=== PATIENT | female | born 1945 | race Caucasian/White ===

== ENCOUNTER 2016-12-06 10:05 | Outpatient (CLI) | payer OTHER, MEDICARE ==
--- NOTE | 2016-12-06 12:04 | DIAGNOSTIC IMAGING REPORT ---
PROCEDURE: MG BILATERAL SCREENING W/CAD INDICATION: Screening. Family history breast carcinoma (grandmother). TECHNIQUE: Bilateral CC and MLO digital views. COMPARISON: Compared to 10/13/2014, 09/04/2011, and 08/09/2009. FINDINGS: Computer-aided detection applied. Moderately dense with a few dystrophic calcifications. There is a 1.4 cm asymmetric density in the lateral left breast (seen only on the CC view - - most likely in the upper outer left breast). IMPRESSION: 1. There is a 1.4 cm asymmetric density in the lateral left breast. While this may represent normal asymmetric parenchyma, underlying mass should also be considered. Further mammographic views (true lateral view, CC and MLO spot compression views) are recommended. In addition, left breast ultrasound is recommended. RESULT CODE: 0- Incomplete; needs additional evaluation. A. A negative report should not delay biopsy if a dominant or clinically suspicious mass is present. 10-15% of cancers are not identified by x-ray. B. A negative report may reinforce clinical impression. C. Adenosis and dense breasts may obscure an underlying neoplasm. D. False positive reports average 6-10%. E.. A yearly screening mammogram is recommended. A reminder letter will be scheduled.
[2017-01-25] MEDS ORDERED: MULTIVITAMIN1 TAB PO (16:51)
[2017-01-25] MEDS ORDERED: ALEVE220 MG PO (16:51)
[2017-01-25] MEDS ORDERED: MELATONIN5 MG PO (16:51)
[2017-01-25] MEDS ORDERED: VITAMIN D-31000 UNIT PO (16:56)
== END 2016-12-06 23:00 ==
LOC: MAM SRH 10:05
DX: Z12.31 Encounter for screening mammogram for malignant neoplasm of breast (principal)

== ENCOUNTER 2016-12-13 14:26 | Outpatient (CLI) | payer OTHER, MEDICARE ==
--- NOTE | 2016-12-20 00:31 | DIAGNOSTIC IMAGING REPORT ---
PROCEDURE: MG UNILATERAL DIAG-LT W/CAD INDICATION: Follow-up left breast asymmetric parenchyma versus nodule. TECHNIQUE: True lateral digital view of the left breast. In addition, spot compression CC and MLO views were obtained of the lateral breast (region of clinical concern), followed by rolled medial and lateral CC, and rolled cranial and caudal lateral views of the left breast. Finally, high-resolution left breast ultrasound was performed (18 mHz). COMPARISON: Comparison is made to screening mammogram studies on 12/06/2016, 10/13/2014, and 07/05/2012. FINDINGS: MAMMOGRAM: Computer-aided detection applied. There is a vague 1.5 cm area of increased parenchymal density in the lateral left breast with obscured margins (middle third). BREAST ULTRASOUND: There are [id number] areas of small clustered cysts in the lateral left breast (largest 6 mm). Findings discussed with Dr. Katerina Monk and Dr. Villagran. IMPRESSION: 1. There is a vague 1.5 cm area of increased density in the lateral left which may correspond to a small of clustered group of cysts. While the overall appearance suggests this may represent benign apocrine metaplasia, underlying malignancy should still be considered. Mammographic needle localization with excisional biopsy recommended in this instance (mammographic density may or may correlate with ultrasound findings). 2. Findings discussed with the patient. 3. Findings called to Dr. Clemons. RESULT CODE: 4- Suspicious abnormality - biopsy should be considered. A. A negative report should not delay biopsy if a dominant or clinically suspicious mass is present. 10-15% of cancers are not identified by x-ray. B. A negative report may reinforce clinical impression. C. Adenosis and dense breasts may obscure an underlying neoplasm. D. False positive reports average 6-10%. E.. A yearly screening mammogram is recommended. A reminder letter will be scheduled.
[2017-01-25] MEDS ORDERED: MULTIVITAMIN1 TAB PO (16:51)
[2017-01-25] MEDS ORDERED: ALEVE220 MG PO (16:51)
[2017-01-25] MEDS ORDERED: MELATONIN5 MG PO (16:51)
[2017-01-25] MEDS ORDERED: VITAMIN D-31000 UNIT PO (16:56)
== END 2016-12-13 23:00 ==
LOC: MAM SRH 14:26
DX: R92.8 Other abnormal and inconclusive findings on diagnostic imaging of breast (principal)

== ENCOUNTER 2017-01-29 09:41 | Day surgery (SDC) | payer OTHER, MEDICARE ==
[~2017-01-29] VITALS: Ht 162.6 cm; Wt 80.2 kg
[~2017-01-29 09:41] MED LIST: ALEVE220 MG PO; MELATONIN5 MG PO; MULTIVITAMIN1 TAB PO; VITAMIN D-31000 UNIT PO
--- NOTE | 2017-01-29 13:57 | DIAGNOSTIC IMAGING REPORT ---
PROCEDURE: MG PREOP BREAST WIRE LOC-LT INDICATION: Preop left breast wire localization for surgical excisional biopsy. TECHNIQUE: Informed consent was obtained and the patient was advised of the usual risks and complications including infection, bleeding and allergy. COMPARISON: Comparison made to left mammogram (12/13/2016), and screening mammogram (12/06/2016). FINDINGS: Following sterile preparation and 1% lidocaine local anesthetic, mammographic-grid technique was utilized to place a long 16-gauge angiocatheter and hook wire in the left lateral breast in the region of a 1.5 cm parenchymal density. Followup images demonstrate the tip of the catheter and wire are just deep to the lesion. The catheter and wire were secured in place (Steri-Strips, Tegaderm) and the patient was transferred back to ambulatory surgery in satisfactory condition. IMPRESSION: 1. Successful preoperative needle localization of left breast density. 2. Findings discussed with Dr. Reinier Hammond.
--- NOTE | 2017-01-29 15:56 | Provider's Discharge Care Plan ---
Problem, Goal, Plan Problem List 1. S/P breast biopsy
--- NOTE | 2017-01-29 15:56 | Provider's Discharge Care Plan ---
Problem, Goal, Plan Problem List 1. S/P breast biopsy
--- NOTE | 2017-01-29 16:42 | OPERATIVE REPORT ---
DATE OF SURGERY: 01/29/2017 SURGEON: Reinier Hammond MD PREOPERATIVE DIAGNOSIS: 1. Left breast mass POSTOPERATIVE DIAGNOSIS: 1. Left breast mass PROCEDURE PERFORMED: 1. Wire localized left breast biopsy ANESTHESIA: General. SURGICAL TECHNIQUE: The patient was taken to the x-ray, where a wire localization procedure was performed. The patient was then transported to the operating room. A general anesthetic and sterile prep and drape were done. A local anesthetic of 0.5% Marcaine with epinephrine was used at the incision site. A transverse curved incision was made central to the wire entry site. Dissection was carried up to the wire, which was pulled into the wound. The tissues on both sides were grasped with Allis forceps , and a generous plug of tissue was removed, incorporating the wire. The specimen and wire were submitted for specimen mammography, which confirmed removal of the lesion. Meticulous pinpoint hemostasis was obtained with electrocautery. The wound was irrigated and found to be hemostatic. The skin was closed with interrupted deep dermal and running subcuticular 4-0 Vicryl suture. Steri-Strips and a sterile pressure dressing were placed. The patient left in good condition. No intraoperative complications were encountered.
[2017-01-29 17:15] VITALS: BP 155/60
--- NOTE | 2017-01-29 17:33 | DIAGNOSTIC IMAGING REPORT ---
PROCEDURE: MG SURGICAL BREAST SPEC-LT INDICATION: Left breast biopsy. TECHNIQUE: AP views without and with grid technique. COMPARISON: Comparison made to mammographic needle localization earlier today (01/29/2017). FINDINGS: There has been successful surgical excision of left breast parenchymal density, located at H - 6. IMPRESSION: 1. Successful surgical excision of left breast density. 2. Findings called to Dr. Hammond in the operating suite.
== END 2017-01-29 17:15 | disposition home or self-care (01) ==
LOC: SDC SRH 09:41 → SCU SRH 09:42 → EDSTATUS 10:30 → MAM SRH 10:30 → SDC SRH 10:30 → MAM SRH 11:00 → SDC SRH 17:15
PROVIDERS: Surgery
PROC: 0HBU0ZX Excision of Left Breast, Open Approach, Diagnostic (ICD-10-PCS; principal; 2017-01-29 12:30)
DX: N60.22 Fibroadenosis of left breast (principal); Z80.3 Family history of malignant neoplasm of breast